=== PATIENT | female | born 1965 | race Caucasian/White ===

== ENCOUNTER → 2017-12-23 | Outpatient (REF) | payer OTHER | LOC: M LAB REF 10:06 | DX: E04.2 Nontoxic multinodular goiter (principal) ==

== ENCOUNTER → 2024-06-16 | Outpatient (CLI) | payer OTHER ==
[~2024-06-16] MED LIST: ABIL1TAB13 PO; COLA100C5 PO; CYMBALTA PO; DULO30CA9 PO; MIRA33504 PO; XALA0.007 OU
== END ==
LOC: M SOG 07:26
PROVIDERS: ATTEND Physician Assistant
DX: M25.531 Pain in right wrist (principal); Z53.9 Procedure and treatment not carried out, unspecified reason